=== PATIENT | female | born 1985 | race Caucasian/White ===

== ENCOUNTER 2019-07-14 10:46 | Inpatient (IN) ==
[2019-07-14] MEDS ORDERED: TYLENOL PO PRN (11:23)
[2019-07-14] MEDS ORDERED: DILAUDID IV PRN ×2 (11:26→12:15)
[2019-07-14] MEDS ORDERED: NS 1,000 ML IV SCH (11:30)
--- NOTE | 2019-07-14 12:10 | Diag Imaging Result Doc PS360 ---
EXAM: CT RENAL STONE SEARCH 07/14/2019 HISTORY: pyelo/h/o kidney stones TECHNIQUE: This exam was performed using automated exposure control, adjustment of mA or kV according to patient size, and/or use of iterative reconstruction technique. COMMENT: The current study is compared with 10/07/2013. There is no evidence of acute disease in the visualized portion of the chest. There has been cholecystectomy. There are two 2 mm or smaller size stones in the lower portion of the right collecting system. No evidence of hydronephrosis is present. There is no evidence of hydroureter or ureterolithiasis. There is a large amount of stool in the right colon and transverse colon. The small bowel is not distended. The appendix is normal in appearance. There is a small amount of free fluid in the cul-de-sac. There is a 2.6 cm cyst in the right ovary. The larger cyst which was demonstrated on the left at the time the previous study of 10/07/2013 is no longer present. The urinary bladder is not distended. There is a bone island in the right sacral holly. No evidence of acute bony abnormality is present. IMPRESSION: Right nephrolithiasis. Constipation. Electronically signed by Charli Carvajal 07/14/2019 12:07 PM
[2019-07-14] MEDS: ZOSYN 3.375 GM in NS 50 ML IV SCH ×3 (12:24→23:30)
[2019-07-14 12:27] LABS: BASO# 0.18 X1000 (0.0-0.2); BASO% 1.2 % (0.0-0.8); EOS# 1.01 X1000 (0.0-0.7); EOS% 6.6 % (0.0-10.0); HEMATOCRIT 45.1 % (37.0-47.0); HEMOGLOBIN 15.1 g/dL (12.0-16.0); IMM GRAN# 0.11 X1000 (0.0-0.04); IMM GRAN% 0.7 % (0.0-0.5); LYMPH# 5.09 X1000 (1.2-3.4); LYMPH% 33.1 % (20.5-51.1); MCH 28.4 PG (27-31); MCHC 33.5 g/dL (33-37); MCV 84.9 FL (81-99); MONO# 1.35 X1000 (0.11-0.59); MONO% 8.8 % (1.7-9.3); MPV 10.5 FL (7.4-10.4); NEUT# 7.62 X1000 (1.4-6.5); NEUT% 49.6 % (42.2-75.2); PLT 286 X1000 (130-400); RBC 5.31 XMIL (4.2-5.4); RDW 13.5 % (11.5-14.5); WBC 15.36 X1000 (4.8-10.8)
[2019-07-14 12:34] LABS: AMYLASE 48 U/L (20-200); LIPASE 30 U/L (13-60)
[2019-07-14] MEDS: ZOFRAN IV PRN ×2 (12:34→22:02)
[2019-07-14 12:51] LABS: AGAP 16; ALB/GLOB RATIO 1.8; ALBUMIN 4.6 g/dL (3.5-5.0); ALKALINE PHOSPHATASE 110 U/L (32-104); BUN 5 mg/dL (8-22); CALCIUM 9.4 mg/dL (8.8-10.2); CHLORIDE 100 mmol/L (98-107); COSMO 274; CREATININE 0.8 mg/dL (0.5-0.9); ESTIMATED GFR > 60; GLUCOSE 81 mg/dL (70-104); GOT 27 U/L (10-30); GPT 24 U/L (10-36); POTASSIUM 3.7 mmol/L (3.5-5.1); SODIUM 139 mmol/L (136-145); TCO2 23 mmol/L (25-35); TOTAL BILIRUBIN 0.85 mg/dL (0.20-1.00); TOTAL PROTEIN 7.2 g/dL (6.3-8.3)
[2019-07-14 14:12] LABS: BANDS 2 % (0-1); EOS 6 % (1-10); LYMPHS 46 % (21-51); MONO 2 % (1-9); SEGS 44 % (42-75)
[2019-07-14] MEDS: POTASSIUM CHLORIDE 20 MEQ in NS 1,000 ML IV SCH ×2 (15:01→23:13)
[2019-07-14 15:13] LABS: URINE SOURCE CLEAN CATCH
[2019-07-14 15:16] LABS: BILIRUBIN URINE NEGATIVE (NEGATIVE); BLOOD URINE TRACE (NEGATIVE); COLOR YELLOW; GLUCOSE URINE NEGATIVE (NEGATIVE); KETONE URINE 10 mg/dL (NEGATIVE); LEUKOCYTES URINE SMALL (NEGATIVE); NITRITE URINE NEGATIVE (NEGATIVE); PROTEIN URINE TRACE mg/dL (NEGATIVE); SP GRAVITY URINE 1.037; TURBIDITY URINE HAZY (CLEAR); UR EPITHELIAL CELLS >10 /HPF (<10); URINE BACTERIA 2+ /HPF; URINE WBC <10 /HPF (<10); UROBILINOGEN URINE 2 mg/dL (NORMAL)
[2019-07-14] MEDS: MARINOL PO SCH (20:29)
[2019-07-14] MEDS: CYMBALTA PO SCH (20:29)
[2019-07-14] MEDS: MIRALAX PO SCH (20:30)
[2019-07-14] MEDS: MAXALT PO PRN (23:11)
[2019-07-15] MEDS: NS + KCL 20 MEQ 1,000 ML IV SCH ×3 (01:38→16:37)
[2019-07-15 05:29] LABS: BASO# 0.08 X1000 (0.0-0.2); BASO% 0.7 % (0.0-0.8); EOS# 0.87 X1000 (0.0-0.7); EOS% 7.6 % (0.0-10.0); HEMATOCRIT 40.2 % (37.0-47.0); IMM GRAN# 0.08 X1000 (0.0-0.04); IMM GRAN% 0.7 % (0.0-0.5); LYMPH# 5.33 X1000 (1.2-3.4); LYMPH% 46.7 % (20.5-51.1); MCH 28.2 PG (27-31); MCHC 32.3 g/dL (33-37); MCV 87.2 FL (81-99); MONO# 1.05 X1000 (0.11-0.59); MONO% 9.2 % (1.7-9.3); MPV 10.5 FL (7.4-10.4); NEUT# 4.01 X1000 (1.4-6.5); NEUT% 35.1 % (42.2-75.2); PLT 259 X1000 (130-400); RBC 4.61 XMIL (4.2-5.4); RDW 13.6 % (11.5-14.5); WBC 11.42 X1000 (4.8-10.8)
[2019-07-15] MEDS: ZOFRAN IV PRN (05:34)
[2019-07-15] MEDS: ZOSYN 3.375 GM in NS 50 ML IV SCH ×4 (05:35→22:40)
[2019-07-15 06:01] LABS: AGAP 11; BUN 5 mg/dL (8-22); CALCIUM 8.6 mg/dL (8.8-10.2); CHLORIDE 108 mmol/L (98-107); COSMO 282; CREATININE 0.8 mg/dL (0.5-0.9); ESTIMATED GFR > 60; GLUCOSE 98 mg/dL (70-104); POTASSIUM 4.4 mmol/L (3.5-5.1); SODIUM 143 mmol/L (136-145); TCO2 24 mmol/L (25-35)
[2019-07-15] MEDS: VITAMIN D PO SCH (08:25)
[2019-07-15] MEDS: CYMBALTA PO SCH ×2 (08:25→20:07)
[2019-07-15] MEDS: LINZESS PO SCH (08:25)
[2019-07-15] MEDS: MIRALAX PO SCH ×2 (08:25→20:09)
[2019-07-15] MEDS: MARINOL PO SCH ×2 (08:26→20:07)
[2019-07-15] MEDS ORDERED: SODIUM CHLORIDE 0.9% INJ PRN (08:45)
[2019-07-15] MEDS ORDERED: PHENERGAN IV PRN (08:45)
[2019-07-15] MEDS ORDERED: SODIUM CHLORIDE 0.9% 10 ML ONE (11:14)
--- NOTE | 2019-07-15 19:15 | PROGRESS NOTE ---
DATE: 07/15/2009 SUBJECTIVE: Patient is sitting up in bed. She has had some emesis, not relieved with Zofran. Still having some back pain over the flank areas. OBJECTIVE: Afebrile. Vital signs stable.Cardiovascular: RRR. No murmur. Lungs: CTA. Bilateral CVA tenderness still prominent. Abdomen: Mild tenderness over the suprapubic areas. No mass or organomegaly. No rebound or guarding. Extremities: No calf tenderness, cords, or edema. Neurologic: Cranial nerves 2-12 are intact. Nonfocal. LABORATORY AND DIAGNOSTIC DATA: White count on admission 15,000, has come down to 11,400. Hemoglobin 13, platelets 259,000. CMP on admission unremarkable, except alkaline phosphatase 110. Amylase and lipase normal at 48 and 30. Today, sodium 143, potassium 4.4, chloride 108, CO2 of 24, BUN 5, creatinine 0.8, glucose 98, calcium 8.6. Urinalysis is a clean-catch specimen showing 2+ bacteria, small leukocytes, 10 to 20 RBCs, less than 10 WBCs, [address] renal stone search was obtained and shows right nephrolithiasis and constipation, a 2.6 cm cyst on the right ovary, small amount of free fluid in the cul-de-sac. No ureterolithiasis. ASSESSMENT: 1. Escherichia coli pyelonephritis. 2. Right nephrolithiasis. 3. Chronic constipation. 4. Multiple sclerosis. 5. Migraine headaches. 6. History of eosinophilic esophagitis. 7. Asthma. 8. History of some leukocytosis remotely. PLAN: We will change Zofran to Phenergan. Continue Zosyn. Add Lovenox for prophylaxis of DVT. Continue her home medications. Dilaudid is present for pain control. We will continue MiraLAX b.i.d. as was added yesterday, and we will continue her Linzess. Continue vigorous hydration with normal saline with potassium supplementation. She is not able to tolerate p.o., so is not a candidate for outpatient treatment at this point. Continue clear liquids. Blood cultures so far are negative x2. cc: Leno Somers MD
--- NOTE | 2019-07-15 20:50 | HISTORY AND PHYSICAL ---
CHIEF COMPLAINT: Dysuria and bilateral flank pain, nausea and vomiting. HISTORY OF PRESENT ILLNESS: The patient is 34-year-old white female followed in my medical practice. She had come into the office on 07/11/2019 complaining of 4-day history of dysuria and had been taking some Azo and had urinary frequency and denied fever at that time. Urinalysis was abnormal and urine culture eventually grew out E coli. The patient was treated outpatient with Bactrim suspension as she does not tolerate pills well. She is on 20 mL b.i.d. orally and again urine culture grew out E coli sensitive to the Bactrim. However the patient felt worsening. She had dysuria, which was fairly significant, and increasing bilateral flank pain with nausea and vomiting causing her to throw up her medicine on occasion and not able to hold down the Bactrim. She was not drinking liquids well and her pulse was elevated at 123 in the office. The patient has comorbid conditions of multiple sclerosis. MEDICATIONS: Otherwise prior to admission are dronabinol 5 mg p.o. b.i.d., Cymbalta 60 mg p.o. b.i.d., rizatriptan 10 mg p.o. b.i.d. p.r.n. migraine headache, Linzess 145 mcg p.o. daily, vitamin D3 5000 units p.o. daily. ALLERGIES: Cipro. PAST MEDICAL HISTORY: 1. History of eosinophilic esophagitis. 2. Asthma. 3. History of leukocytosis with negative bone marrow biopsy in 2005. 4. Migraine headaches. 5. Perennial allergic rhinitis. 6. Chronic constipation. 7. History of kidney stones. 8. Multiple sclerosis diagnosed 2017 and followed by Neurology. PAST SURGICAL HISTORY: Cholecystectomy. IMMUNIZATIONS: Patient notably took a influenza vaccine April 2019. FAMILY HISTORY: Notable for hypertension in her mother and father, rheumatoid arthritis in her grandmother, diabetes mellitus in her paternal grandmother, stroke in a paternal grandmother, no NM or coronary artery disease in the family. Prostate cancer in her father and grandfather. Grandfather with colon cancer. Breast cancer in maternal aunt. SOCIAL HISTORY: The patient lives in [place]. She is . She has 1 son. She is a teacher at a local elementary school. She is a nonsmoker. Drinks about 1 beer a week. REVIEW OF SYSTEMS: Negative except as above. PHYSICAL EXAM: On admission showed weight 199 which is stable, height 5 feet 3 inches tall, blood pressure 98/63, pulse 123, BMI 35, temperature 98 degrees. GENERAL: Mildly obese white female, ill appearing. Skin pale, clammy. PERRL. EOMI. Sclerae anicteric . OP no redness. Tongue in the midline. NECK: No LA, TMG, JVD, or bruits. CV: Tachycardia, regular rhythm. No murmur. LUNGS: CTA. BACK: Bilateral CVA tenderness is noted. ABDOMEN: Soft, mild to moderate tenderness over the suprapubic area. No mass or organomegaly. No rebound or guarding. BREAST, PELVIC, RECTAL: Deferred.Extremities: No calf tenderness, cords or edema. Neuro: Cranial nerves 2-12 are intact nonfocal. Again urine culture growing out E coli sensitive to Bactrim and also sensitive to piperacillin/tazobactam. Urinalysis in the office on 07/11 revealed negative blood, 100 glucose, bilirubin small, trace ketones, specific gravity 1.015, protein 100, pH 5, urobilinogen 2, nitrite positive, leukocytes large. ASSESSMENT: 1. Escherichia coli pyelonephritis. 2. Multiple sclerosis. 3. History of kidney stones. 4. Chronic constipation. 5. Migraine headaches. 6. Perennial allergic rhinitis. 7. History of eosinophilic esophagitis. 8. Asthma. 9. History of leukocytosis in the past with negative bone marrow biopsy remotely in greater than 10 years ago. PLAN: Will admit the patient and change from oral Bactrim to IV Zosyn. Blood cultures and urine culture will be obtained along with CBC, CMP, amylase, lipase levels. Repeat urinalysis and will check CT RSS in light of prior history of nephrolithiasis. Will give her vigorous IV hydration, clear liquids, antiemetics in the form of Zofran, continue her home medications. Give her Dilaudid as needed for pain and we will follow the patient clinically. cc: Leno Somers MD
[2019-07-15] MEDS: MAXALT PO PRN (21:28)
[2019-07-16] MEDS: NS + KCL 20 MEQ 1,000 ML IV SCH ×2 (01:33→11:36)
[2019-07-16] MEDS: ZOSYN 3.375 GM in NS 50 ML IV SCH ×4 (04:30→23:03)
[2019-07-16 05:44] LABS: BASO# 0.06 X1000 (0.0-0.2); BASO% 0.6 % (0.0-0.8); EOS% 4.8 % (0.0-10.0); HEMATOCRIT 37.7 % (37.0-47.0); HEMOGLOBIN 12.1 g/dL (12.0-16.0); IMM GRAN# 0.08 X1000 (0.0-0.04); IMM GRAN% 0.8 % (0.0-0.5); LYMPH# 4.72 X1000 (1.2-3.4); LYMPH% 45.4 % (20.5-51.1); MCH 28.3 PG (27-31); MCHC 32.1 g/dL (33-37); MCV 88.1 FL (81-99); MONO# 0.79 X1000 (0.11-0.59); MONO% 7.6 % (1.7-9.3); MPV 10.5 FL (7.4-10.4); NEUT# 4.25 X1000 (1.4-6.5); NEUT% 40.8 % (42.2-75.2); PLT 224 X1000 (130-400); RBC 4.28 XMIL (4.2-5.4); RDW 13.5 % (11.5-14.5)
[2019-07-16 06:26] LABS: AGAP 9; BUN 4 mg/dL (8-22); CALCIUM 8.4 mg/dL (8.8-10.2); CHLORIDE 107 mmol/L (98-107); COSMO 277; CREATININE 0.8 mg/dL (0.5-0.9); ESTIMATED GFR > 60; GLUCOSE 79 mg/dL (70-104); POTASSIUM 4.3 mmol/L (3.5-5.1); SODIUM 141 mmol/L (136-145); TCO2 25 mmol/L (25-35)
[2019-07-16] MEDS: LOVENOX SUBQ SCH (09:23)
[2019-07-16] MEDS: CYMBALTA PO SCH ×2 (09:28→20:40)
[2019-07-16] MEDS: MIRALAX PO SCH ×2 (09:28→20:42)
[2019-07-16] MEDS: VITAMIN D PO SCH (09:28)
[2019-07-16] MEDS: MARINOL PO SCH ×2 (09:28→20:40)
[2019-07-16] MEDS: LINZESS PO SCH (09:29)
--- NOTE | 2019-07-16 11:11 | PROGRESS NOTE ---
DATE: 07/16/2019 SUBJECTIVE: Ms. García is a 34 -year-old white female patient admitted with dysuria. Urinalysis grew Escherichia. coli sensitive to Bactrim. The patient had increasing bilateral flank pain associated with nausea and vomiting. The patient was tachycardic. She had a history of multiple sclerosis evaluated by PMD. The patient had CT scan of the abdomen done which did reveal right pyelonephritis, nephrolithiasis and constipation. As patient was not adequately responding to outpatient treatment and patient was getting more sick, admitted for further care. The patient started on IV antibiotics. She seems to be doing some better. Her nausea and vomiting improving, no high-grade fever or chills. Flank pain is less. Denied any diarrhea. Patient does have constipation. PAST MEDICAL HISTORY: Significant for asthma, eosinophilic esophagitis, migraine, allergic rhinitis, chronic constipation, history of kidney stone, multiple sclerosis. OBJECTIVE: Vital Signs: Blood pressure 105/61, pulse 79, respiration 19, temperature 98.2 degrees. Skin: Normal turgor. Neck: Supple. No JVD. Lungs: Bilateral good air entry present. CVS: S1 and S2 heard. Abdomen: Soft. No distention. Bowel sounds present. Mild tenderness at the renal angle. Extremities: No cyanosis, clubbing. No acute DVT. BODY MECHANIC: Alert, awake able to move all 4 limbs. LAB DATA: At done today. WBC count 10.40, hemoglobin 12.1, hematocrit 37.7, platelet count 224,000. Electrolytes fairly benign. CONSIDERATION: Urinary tract infection, nephrolithiasis, possible pyelonephritis, chronic constipation, history of multiple sclerosis, migraine headache clinically doing better, eosinophilic esophagitis, asthma asymptomatic. We will continue Zosyn and rest of the treatment. PLAN: Overall plan discussed at length with the patient. I am going to advance her diet to full liquid diet. cc: MD Leno Haq MD
[2019-07-17] MEDS: NS + KCL 20 MEQ 1,000 ML IV SCH ×3 (02:16→10:24)
[2019-07-17] MEDS: ZOSYN 3.375 GM in NS 50 ML IV SCH ×2 (04:45→10:29)
[2019-07-17] MEDS: MAXALT PO PRN (05:12)
[2019-07-17 08:28] VITALS: BP 117/66
[2019-07-17] MEDS: CYMBALTA PO SCH (10:19)
--- NOTE | 2019-07-17 10:20 | PROGRESS NOTE ---
DATE: 07/17/2019 SUBJECTIVE: Ms. García is doing better, tolerating food well. Nausea, vomiting, flank pain, and abdominal pain improved. No fever or chills. Denied being weak. OBJECTIVE: Vital Signs: Noted. The patient is afebrile. Blood pressure 107/66, heart rate 79, respiratory rate 15. Neck: Supple. No JVD. Lungs: Bilateral good air entry present. Cardiovascular: S1 and S2 heard. Abdomen: Soft, globular. Bowel sounds present. Extremities: No cyanosis, clubbing. No acute DVT. SENIOR CLINICAL STUDY MANAGER: Alert, awake, able to move all 4 limbs. The patient is tolerating food well. ASSESSMENT AND PLAN: 1. Patient admitted with urinary tract infection, not responding to outpatient treatment. 2. Possible pyelonephritis. 3. She had history of multiple sclerosis. 4. Right nephrolithiasis. 5. Chronic constipation, on Linzess. 6. Migraine headache. 7. History of eosinophilic esophagitis. Overall, the patient received maximum benefit of hospitalization. The patient is eager to go home. She does have Bactrim DS at home, which she will take it. Follow up with primary medical doctor on Thursday. In case of more distress, call us back or go to emergency room. Overall discharge condition satisfactory. cc: MD Leno Haq MD
[2019-07-17] MEDS: MIRALAX PO SCH (10:22)
[2019-07-17] MEDS: VITAMIN D PO SCH (10:22)
[2019-07-17] MEDS: MARINOL PO SCH (10:22)
[2019-07-17] MEDS: LINZESS PO SCH (10:23)
[2019-07-17] MEDS: LOVENOX SUBQ SCH (10:24)
== END 2019-07-17 12:03 | disposition home or self-care (01) | DRG 690 ==
LOC: DIRADM 10:46 → 1N 11:22
PROVIDERS: ADMIT Family Medicine; ATTEND Family Medicine